=== PATIENT | female | born 2000 | race Caucasian/White ===

== ENCOUNTER 2023-10-27 10:05 | Emergency (ER) | payer OTHER, SELFPAY ==
[2023-10-27 10:09] VITALS: BP 122/87
[2023-10-27 10:33] VITALS: BMI 24.1
[2023-10-27 10:39] LABS: % Basophils 0.4 % (0-2); % Eosinophils 0.6 % (0-6); % Immature Granulocytes 0.6 % (0-0.5); % Lymphocytes 19.1 % (20.5-51.1); % Monocytes 13.7 % (1.7-9.3); % Neutrophils 65.6 % (42.2-75.2); Absolute Lymphocytes 0.9 10^3/uL (1.2-3.4); Absolute Monocytes 0.6 10^3/uL (0.1-0.6); Absolute Neutrophils 3.1 10^3/uL (1.4-6.5); Hematocrit 38.9 % (37.0-47.0); Hemoglobin 13.8 g/dL (12.0-16.0); Mean Corp Hgb Conc. 35.5 g/dL (33.0-37.0); Mean Corpuscular Hgb 33.3 pg (27.0-31.0); Mean Platelet Volume 9.2 fL (7.4-10.4); Nucleated Red Blood Cells % 0 %; Platelet Count 175 10^3/uL (130-400); Red Blood Cell Count 4.14 10^6/uL (4.20-5.40); Red Cell Dist. Width 12.7 % (11.5-14.5); White Blood Cell Count 4.7 10^3/uL (4.8-10.8)
[2023-10-27] MEDS: OMNIPAQUE 50 ML PO (10:46)
[2023-10-27] MEDS: NSS 1000 IV (10:46)
[2023-10-27 10:52] LABS: HCG, Serum Qualitative Screen Negative
[2023-10-27 10:55] LABS: ALT (SGPT) 28 U/L (0-35); AST (SGOT) 45 U/L (14-36); Albumin 4.5 g/dl (3.5-5.0); Alkaline Phosphatase 70 U/L (38-126); Blood Urea Nitrogen 10 mg/dl (7-17); Calcium 9.3 mg/dl (8.4-10.2); Carbon Dioxide 21 mmol/L (22-30); Chloride 106 mmol/L (98-107); Estimated Creatinine Clearance 100 ml/min; Glucose 86 mg/dl (70-99); Sodium 137 mmol/L (135-145); Total Bilirubin 0.5 mg/dl (0.2-1.3); Total Protein 6.9 g/dl (6.3-8.2); eGFR > 60.00
--- NOTE | 2023-10-27 11:15 | ED.GENMED ---
History of Present Illness
General
Chief Complaint: Abdominal Symptoms
Source: patient
Exam Limitations: none
Time Seen by Provider: 10/27/23 10:13
Nursing documentation reviewed up to this point in time: agreed with
History of Present Illness
History of Present Illness:
Patient is a 23-year-old female who presents to the emergency department complaining of abdominal pain with watery diarrhea. Patient is an urgent care and sent to the emergency department for imaging. 3 days ago the patient started with watery
diarrhea. Patient's nauseous without vomiting. Patient denies fever. Patient admits to decreased appetite. Patient denies any hematochezia, melena or mucus. Patient's last period was 3 weeks ago. Patient has not been on any recent antibiotics.
Patient denies travel history and no one else is ill. Patient works on the pediatric floor as a nurse and unsure about if rotavirus is apparent. Patient denies any previous surgical history. Patient was diagnosed with IBS but with constipation.
Patient denies any symptoms.
Past History
Past History
ED Past Medical History: Other (IBS)
ED Past Surgical History: None
Social History
Tobacco: Non-smoker
Review of Systems
Review of Systems
All Other Systems: ROS reviewed and negative except as documented in HPI and ROS
EENT: Reports no symptoms
Respiratory: Reports no symptoms
Cardiac: Reports no symptoms
ABD/GI: Reports abdominal pain, nausea, diarrhea and anorexia; Denies vomiting, bloody stools or black stools
: Reports no symptoms
Musculoskeletal: Reports no symptoms
Skin: Reports no symptoms
Neurological: Reports no symptoms
Hematologic/Lymphatic: Reports no symptoms
Phy Exam
Physical Exam
Physical Exam:
Physical Exam
General: mild distress, alert and appropriate, well nourished, mildly dry mucous membranes
HENT: Normocephalic, supple with no lymphadenopathy, no thyromegaly
Eyes: Clear sclera, conjuctiva without injection
Heart: Regular rhythm and rate. No S3, S4. No murmur.
Lungs: No respiratory distress, no stridor, lung sounds clear and equal bilaterally
Abdomen: Soft, mild right lower quadrant tenderness without guarding or rebound, no organomegaly, no CVA tenderness, BS diminished
Neuro: Alert and oriented x 3, CN II - XII intact, no motor focality, no cerebellar dysfunction
Skin: no rash
Psychiatric: well kept. interactive and cooperative
Extremities: No edema, cyanosis, tenderness, Good and equal peripheral pulses.
Scores
Heart Failure Risk
Heart Failure Risk Score: Not Applicable
Heart Score for Chest Pain Patients
STEMI patient?: Not applicable
Withdrawal Assessment of Alcohol
Withdrawal Assessment Completed?: Not applicable
Course
Orders/Labs/Results
Orders:
Orders
10/27/23 10:23
CT Abd/pel W Iv And Oral Contr Urgent
Comment:
Reason For Exam: RLQ pain/tender
Urinalysis Reflex To Culture Urgent
Stool Culture Urgent
PAYAM Source: Feces/Stool
Specimen Description:
Stool For WBC Urgent
PAYAM Source: Feces/Stool
Specimen Description:
0.9% Sodium Chloride 1000 ml [Nss] 1,000 ml IV BOLUS
Iohexol [Omnipaque] See Protocol PO NOW STA
Ondansetron Injectable [Zofran] 4 mg IV NOW STA
Test Result ONCE
10/27/23 10:35
Complete Blood Count/With Diff Urgent
Comprehensive Metabolic Panel Urgent
HCG, Serum Qualitative Screen Urgent
Abnormal Lab Results
10/27/23
10:35
WBC 4.7 L 10^3/uL
(4.8-10.8)
RBC 4.14 L 10^6/uL
(4.20-5.40)
MCH 33.3 H pg
(27.0-31.0)
Absolute Lymphs (auto) 0.9 L 10^3/uL
(1.2-3.4)
Immature Gran % 0.6 H %
(0-0.5)
Lymphocytes % 19.1 L %
(20.5-51.1)
Monocytes % 13.7 H %
(1.7-9.3)
Carbon Dioxide 21 L mmol/L
(22-30)
AST 45 H U/L
(14-36)
10/27/23 10:35
10/27/23 10:35
Vital Signs
Initial and Last Documented VS:
Initial Vital Signs
Temp Pulse Resp BP Pulse Ox
98.5 F 92 19 122/87 100
10/27/23 10:09 10/27/23 10:09 10/27/23 10:09 10/27/23 10:09 10/27/23 10:09
Last Documented Vital Signs
Temp Pulse Resp BP Pulse Ox
98.5 F 82 19 110/64 100
10/27/23 10:09 10/27/23 12:50 10/27/23 10:09 10/27/23 12:50 10/27/23 12:50
*Radiology
Radiology exam reviewed: radiology read reviewed (Negative CT scan)
*Pulse Oximetry
Patient hypoxic: no
*EKG
Interpreted by ED Provider?: NA
*Coremaking Machine Operator Interpretation
Rate: Coremaking Machine Operator- N/A
*Critical Care Note
Total Time (30-74mins, 75-104mins- exclusive of procedures): Not Applicable
Update Note
Update Note:
Patient has not had diarrhea while in the ER. Patient is new to working in pediatrics I believe this is the origin of her diarrhea. Patient has not been on antibiotics so do not believe she needs test for C. difficile. Patient will be discharged.
ED Attending Note
-
Portions of this chart may have been created with voice recognition software.� Occasional wrong word or��sound alike� substitutions may have occurred due to the inherent limitations of voice recognition software.
Discharge Plan
Departure
Patient Disposition: Home (Routine Discharge)
Date of Disposition: 10/27/23
Time of Disposition: 14:22
Patient with high blood pressure during this ER visit?: No
Condition: Good
Covid-19: Not Applicable
Discharge Problem:
Diarrhea
Instructions: Diarrhea in teens and adults, [place] Diet
Referrals:
Tam Lyles MD [Active] - Call in 1-3 days for appt
Sera Richardson CRNP [Family Provider] - Follow up in 5-7 days
Activity Restrictions/Additional Instructions:
Use Metamucil once or twice a day. You may use Imodium. If you have increasing diarrhea specially with bleeding, fever or increasing abdominal pain please return.
Interventions
Interventions:
*Risk Screen - Suicide Last Done: 10/27/23 10:09
*General Assessment Last Done: 10/27/23 10:09
*Neglect/Abuse Screening Last Done: 10/27/23 10:09
ED- Fall Risk Assessment Last Done: 10/27/23 10:56
*ED COVID-19 Vaccine History Last Done: 10/27/23 10:09
AQ-Inbwgn-Ammmtnfhxc Assessment Last Done: 10/27/23 10:56
Discharge Date and Time
Print Language: [place]
[2023-10-27 12:50] VITALS: BP 110/64
[2023-10-27 14:53] VITALS: BP 108/68
== END 2023-10-27 14:54 | disposition home or self-care (01) ==
LOC: EMR 10:05
PROVIDERS: EMERGENCY PHYSICIAN Emergency Medicine; FAMILY PHYSICIAN Nurse Practitioner Adult Health
DX: R19.7 Diarrhea, unspecified (principal)
CPT/HCPCS: 99285; 96360; 74177; 80053; 84703; 85025; Q9967